=== PATIENT | female | born 1975 | race Caucasian/White ===

== ENCOUNTER 2016-08-24 22:14 | Emergency (ER) | payer BC ==
[2016-08-24] MEDS ORDERED: Sodium Chloride 0.9% 1,000 ML IV ONE (22:41)
[2016-08-24] MEDS ORDERED: Sodium Chloride 0.9% 2.5 ML Syringe FLUSH PRN (22:41)
[2016-08-24] MEDS ORDERED: Ketorolac 30 MG/ML SDV IVPUSH ONE (22:41)
[2016-08-24] MEDS ORDERED: HYDROmorphone 2 MG/ML Syringe IVPUSH ONE (22:41)
[2016-08-24] MEDS ORDERED: Ondansetron 4 MG/2 ML SDV IVPUSH ONE (22:41)
--- NOTE | 2016-08-24 22:43 | EDM.PDOC ---
ED HPI GENERAL MEDICAL PROBLEM - General Chief Complaint: Flank Pain Stated Complaint: BACK PAIN Time Seen by Provider: 08/24/16 22:34 - History of Present Illness INITIAL COMMENTS - FREE TEXT/NARRATIVE: HISTORY AND PHYSICAL: History of present illness: The patient is a 40-year-old female with a history of kidney stones many years ago, ovarian cysts cholecystectomy depression and chronic lumbar back pain was been seen in the past by our pain management physician for mild degenerative disc bulging at L4-L5 (per MRI done 09/08/2015 and reviewed by me) and currently takes pain medications for her chronic back pain; patient follows at [facility] for her regular medical problems and states that she stopped her antidepressant medication and is currently only taking medications for her back. Patient presents today with complaints of dysuria and hematuria that started yesterday and right sided back pain/flank pain that radiates to her right lower abdomen at about 3:00 today. She says that she had some dull pain starting yesterday with a urinary complaints but he does seem to have grown and intensified through today until tonight. Patient has had nausea and one episode of vomiting earlier today and currently feels some nausea. She has no neurosensory changes in her legs and no bowel or bladder disturbances other than as stated above. She has been having normal bowel movements and has no left -sided pain. Patient denies any chest pain or shortness of breath and has had no stated fevers or chills. The patient states that this current pain that she is experiencing is not like her to be full lumbar pain and she cannot recall what she felt like prior kidney stone. Patient had no recent falls or injury to her back or flank. Review of systems: As per history of present illness and below otherwise all systems reviewed and negative. Past medical history: As per history of present illness and as reviewed below otherwise noncontributory. Surgical history: As per history of present illness and as reviewed below otherwise noncontributory. Social history: No reported history of drug or alcohol abuse. Family history: As per history of present illness and as reviewed below otherwise noncontributory. Physical exam: General: Well-developed mildly overweight female who is nontoxic but looks uncomfortable in the room and vital signs have been noted by me HEENT: Atraumatic, normocephalic, pupils reactive, negative for conjunctival pallor or scleral icterus, mucous membranes tacky, throat clear, neck supple, nontender, trachea midline. Lungs: Clear to auscultation, breath sounds equal bilaterally, chest nontender. Heart: S1S2, regular, negative for clicks, rubs, or JVD. Abdomen: Soft, nondistended, hypoactive bowel sounds. There is mild tenderness on palpation of the right mid and right lower abdomen without rebound or guarding. I cannot completely reproduce the pain. Negative for masses or hepatosplenomegaly. Negative for costovertebral tenderness. Pelvis: Stable nontender. Genitourinary: Deferred. Rectal: Deferred. Extremities: Atraumatic, negative for cords or calf pain. Neurovascular unremarkable. Neuro: Awake, alert, oriented. Cranial nerves II through XII unremarkable. Cerebellum unremarkable. Motor and sensory unremarkable throughout. Exam nonfocal. There is no drift or noted weakness in the extremities, patient ambulated back to the ED without assistance. Dorsi and plantar flexion is intact bilaterally 5/5 inclusive of the great toe. Back: There is some mild tenderness in the paralumbar spinal area on the right- hand side but there are no midline step-offs tenderness or defects of the lumbar spine. Diagnostics: CBC CMP UA urine culture urine test CT scan of the abdomen and pelvis Therapeutics: IV fluids Zofran Dilaudid Toradol Rocephin Patient is feeling much improved and all testing results have been discussed with the patient and family at bedside. I will prescribe medications for home and advised hydration and need for followup and reasons to return to the ED. Patient is aware of the incidental left ovarian cyst any for followup of that in 4-6 weeks. Impression: Right pyelonephritis, incidental left ovarian cyst Definitive disposition and diagnosis as appropriate pending reevaluation and review of above. Right Flank Pain Score (Numeric/FACES): 7 - Related Data Allergies Allergy/AdvReac Type Severity Reaction Status Date / Time clarithromycin Allergy Cannot Verified 08/24/16 22:22 Remember escitalopram oxalate Allergy Rash Verified 08/24/16 22:22 [From Lexapro] latex Allergy Itching Verified 08/24/16 22:22 sumatriptan Allergy Cannot Verified 08/24/16 22:22 Remember Thiazides Allergy Cannot Verified 08/24/16 22:22 Remember tiagabine HCl [From Gabitril] Allergy Delusions Verified 08/24/16 22:22 Home Meds: Home Meds Sertraline [Zoloft] 50 mg PO BEDTIME 07/25/13 [History] Zolpidem [Ambien] 10 mg PO BEDTIME 07/25/13 [History] Venlafaxine [Effexor XR] 75 mg PO BEDTIME 07/29/13 [History] Past Medical History HEENT History: Reports: None Cardiovascular History: Reports: None Genitourinary History: Reports: Renal calculus Other OB/BYN History: cyst on the ovary and breast Musculoskeletal History: Reports: Back pain, chronic Psychiatric History: Reports: None Dermatologic History: Reports: None - Past Surgical History HEENT Surgical History: Reports: None GI Surgical History: Reports: Cholecystectomy Social & Family History - Tobacco Use Smoking Status *Q: Never Smoker Years of Tobacco use: 8 Used Tobacco, but Quit: Yes Month Tobacco Last Used: 03/29 Second Hand Smoke Exposure: No - Alcohol Use Days Per Week of Alcohol Use: 0 Number of Drinks Per Day: 0 Total Drinks Per Week: 0 - Recreational Drug Use Recreational Drug Use: No Drug Use in Last 12 Months: No ED ROS GENERAL - Review of Systems Review Of Systems: ROS reveals no pertinent complaints other than HPI. ED EXAM, GENERAL - Physical Exam Exam: See Below (See dictation) Course - Vital Signs Last Recorded V/S: Last Vital Signs Temp 36.9 C 08/24/16 22:22 Pulse 96 08/24/16 22:22 Resp 16 08/24/16 22:22 BP 140/90 08/24/16 22:22 Pulse Ox 98 08/24/16 22:22 - Orders/Labs/Meds Orders: Active Orders 24 hr Category Date Time Status Abdomen Pelvis wo Cont [CT] Stat Exams 08/24/16 22:41 Taken CULTURE URINE [RM] Stat Lab 08/24/16 22:25 Received Sodium Chloride 0.9% [Saline Flush] Med 08/24/16 22:41 Active 10 ml FLUSH ASDIRECTED PRN Sodium Chloride 0.9% [Saline Flush] Med 08/24/16 22:41 Active 2.5 ml FLUSH ASDIRECTED PRN Saline Lock Insert [OM.PC] Stat Oth 08/24/16 22:40 Ordered Medication Orders Sodium Chloride (Saline Flush) 10 ml FLUSH ASDIRECTED PRN PRN Reason: Keep Vein Open Last Admin: 08/24/16 23:03 Dose: 10 ml Admin: 08/24/16 23:02 Dose: 10 ml Admin: 08/24/16 22:59 Dose: 10 ml Sodium Chloride (Saline Flush) 2.5 ml FLUSH ASDIRECTED PRN PRN Reason: Keep Vein Open Last Admin: 08/24/16 22:59 Dose: 2.5 ml Labs: Laboratory Tests 08/24/16 08/24/16 08/24/16 Range/Units 22:25 22:25 22:55 WBC 11.49 H (4.0-11.0) K/uL RBC 4.69 (4.30-5.90) M/uL Hgb 13.8 (12.0-16.0) g/dL Hct 40.9 (36.0-46.0) % MCV 87.2 (80.0-98.0) fL MCH 29.4 (27.0-32.0) pg MCHC 33.7 (31.0-37.0) g/dL RDW Std Deviation 42.1 (28.0-62.0) fl RDW Coeff of Nancy 13 (11.0-15.0) % Plt Count 245 (150-400) K/uL MPV 10.30 (7.40-12.00) fL Neut % (Auto) 58.9 (48.0-80.0) % Lymph % (Auto) 31.7 (16.0-40.0) % [place] % (Auto) 7.6 (0.0-15.0) % Eos % (Auto) 1.6 (0.0-7.0) % Baso % (Auto) 0.2 (0.0-1.5) % Neut # (Auto) 6.8 H (1.4-5.7) K/uL Lymph # (Auto) 3.6 H (0.6-2.4) K/uL [place] # (Auto) 0.9 H (0.0-0.8) K/uL Eos # (Auto) 0.2 (0.0-0.7) K/uL Baso # (Auto) 0.0 (0.0-0.1) K/uL Nucleated RBC % 0.0 /100WBC Nucleated RBCs # 0 K/uL Sodium (136-146) mmol/L Potassium (3.5-5.1) mmol/L Chloride (98-110) mmol/L Carbon Dioxide (21-31) mmol/L BUN (6.0-23.0) mg/dL Creatinine (0.6-1.5) mg/dL Est Cr Clr Drug Dosing mL/min Estimated GFR (MDRD) ml/min Glucose (60-110) mg/dL Calcium (8.8-10.8) mg/dL Total Bilirubin (0.1-1.5) mg/dL AST (5-40) IU/L ALT (8-54) IU/L Alkaline Phosphatase (40-150) Total Protein (6.0-8.0) g/dL Albumin (3.5-5.0) g/dL Globulin (2.0-3.5) g/dL Albumin/Globulin Ratio (1.3-2.8) Urine Color YELLOW Urine Appearance SLT CLOUDY Urine pH 5.5 (5.0-8.0) Ur Specific [place] 1.015 (1.001-1.035) Urine Protein 30 (NEGATIVE) mg/dL Urine Glucose (UA) NEGATIVE (NEGATIVE) mg/dL Urine Ketones NEGATIVE (NEGATIVE) mg/dL Urine Occult Blood LARGE H (NEGATIVE) Urine Nitrite POSITIVE H (NEGATIVE) Urine Bilirubin NEGATIVE (NEGATIVE) Urine Urobilinogen 0.2 (<2.0) EU/dL Ur Leukocyte Esterase LARGE (NEGATIVE) Urine RBC 3-5 (0-2/HPF) Urine WBC 50-75 (0-5/HPF) Ur Epithelial Cells FEW (NONE-FEW) Urine Bacteria FEW (NEGATIVE) Urine HCG, Qual NEGATIVE (NEGATIVE) 08/24/16 Range/Units 22:55 WBC (4.0-11.0) K/uL RBC (4.30-5.90) M/uL Hgb (12.0-16.0) g/dL Hct (36.0-46.0) % MCV (80.0-98.0) fL MCH (27.0-32.0) pg MCHC (31.0-37.0) g/dL RDW Std Deviation (28.0-62.0) fl RDW Coeff of Nancy (11.0-15.0) % Plt Count (150-400) K/uL MPV (7.40-12.00) fL Neut % (Auto) (48.0-80.0) % Lymph % (Auto) (16.0-40.0) % [place] % (Auto) (0.0-15.0) % Eos % (Auto) (0.0-7.0) % Baso % (Auto) (0.0-1.5) % Neut # (Auto) (1.4-5.7) K/uL Lymph # (Auto) (0.6-2.4) K/uL [place] # (Auto) (0.0-0.8) K/uL Eos # (Auto) (0.0-0.7) K/uL Baso # (Auto) (0.0-0.1) K/uL Nucleated RBC % /100WBC Nucleated RBCs # K/uL Sodium 139 (136-146) mmol/L Potassium 3.5 (3.5-5.1) mmol/L Chloride 106 (98-110) mmol/L Carbon Dioxide 26 (21-31) mmol/L BUN 10 (6.0-23.0) mg/dL Creatinine 0.8 (0.6-1.5) mg/dL Est Cr Clr Drug Dosing 89.08 mL/min Estimated GFR (MDRD) > 60.0 ml/min Glucose 106 (60-110) mg/dL Calcium 9.3 (8.8-10.8) mg/dL Total Bilirubin 0.5 (0.1-1.5) mg/dL AST 13 (5-40) IU/L ALT 14 (8-54) IU/L Alkaline Phosphatase 60 (40-150) Total Protein 6.5 (6.0-8.0) g/dL Albumin 4.0 (3.5-5.0) g/dL Globulin 2.5 (2.0-3.5) g/dL Albumin/Globulin Ratio 1.6 (1.3-2.8) Urine Color Urine Appearance Urine pH (5.0-8.0) Ur Specific [place] (1.001-1.035) Urine Protein (NEGATIVE) mg/dL Urine Glucose (UA) (NEGATIVE) mg/dL Urine Ketones (NEGATIVE) mg/dL Urine Occult Blood (NEGATIVE) Urine Nitrite (NEGATIVE) Urine Bilirubin (NEGATIVE) Urine Urobilinogen (<2.0) EU/dL Ur Leukocyte Esterase (NEGATIVE) Urine RBC (0-2/HPF) Urine WBC (0-5/HPF) Ur Epithelial Cells (NONE-FEW) Urine Bacteria (NEGATIVE) Urine HCG, Qual (NEGATIVE) Meds: Medications Generic Name Dose Route Start Last Admin Trade Name Freq PRN Reason Stop Dose Admin Sodium Chloride 10 ml 08/24/16 22:41 08/24/16 23:03 Saline Flush FLUSH 10 ml ASDIRECTED PRN Administration Keep Vein Open Sodium Chloride 2.5 ml 08/24/16 22:41 08/24/16 22:59 Saline Flush FLUSH 2.5 ml ASDIRECTED PRN Administration Keep Vein Open Discontinued Medications Generic Name Dose Route Start Last Admin Trade Name Freq PRN Reason Stop Dose Admin Hydromorphone HCl 1 mg 08/24/16 22:41 08/24/16 23:02 Dilaudid IVPUSH 08/24/16 22:42 1 mg ONETIME ONE Administration Sodium Chloride 1,000 mls @ 999 mls/hr 08/24/16 22:41 08/24/16 22:58 Normal Saline IV 08/24/16 23:41 999 mls/hr STAT ONE Administration Ceftriaxone Sodium/Dextrose 1 50 mls @ 100 mls/hr 08/24/16 22:52 08/24/16 23: 08 gm/ Premix IV 08/24/16 23:21 100 mls/hr ONETIME ONE Administration Ketorolac Tromethamine 30 mg 08/24/16 22:41 08/24/16 23:00 Toradol IVPUSH 08/24/16 22:42 30 mg ONETIME ONE Administration Ondansetron HCl 4 mg 08/24/16 22:41 08/24/16 22:59 Zofran IVPUSH 08/24/16 22:42 4 mg ONETIME ONE Administration Departure - Departure Time of Disposition: 00:58 Disposition: Home, Self-Care 01 Condition: good Clinical Impression: Pyelonephritis - Discharge Information Forms: ED Department Discharge Additional Instructions: The following information is given to patients seen in the emergency department who are being discharged to home. This information is to outline your options for follow-up care. We provide all patients seen in our emergency department with a follow-up referral. The need for follow-up, as well as the timing and circumstances, are variable depending upon the specifics of your emergency department visit. If you don't have a primary care physician on staff, we will provide you with a referral. We always advise you to contact your personal physician following an emergency department visit to inform them of the circumstance of the visit and for follow-up with them and/or the need for any referrals to a consulting specialist. The emergency department will also refer you to a specialist when appropriate. This referral assures that you have the opportunity for followup care with a specialist. All of these measure are taken in an effort to provide you with optimal care, which includes your followup. Under all circumstances we always encourage you to contact your private physician who remains a resource for coordinating your care. When calling for followup care, please make the office aware that this follow-up is from your recent emergency room visit. If for any reason you are refused follow-up, please contact the [facility] emergency department at and ask to speak to the emergency department charge nurse. [address] [place] [address] [facility] Primary care- Internal Medicine and Family [address] [id number] Please contact and followup your provider at [facility] or one of our providers in the next few days. You will need a followup ultrasound of your left ovary to evaluate the incidental cyst in 4-6 weeks. Please take the antibiotic prescribed until they are finished and use [id number] Tylenol/ ibuprofen for pain as well as medications prescribed to you today. Return to ER as needed and as discussed - My Orders Last 24 Hours: My Active Orders 08/24/16 22:25 CULTURE URINE [RM] Stat 08/24/16 22:40 Saline Lock Insert [OM.PC] Stat 08/24/16 22:41 Abdomen Pelvis wo Cont [CT] Stat Sodium Chloride 0.9% [Saline Flush] 10 ml FLUSH ASDIRECTED PRN Sodium Chloride 0.9% [Saline Flush] 2.5 ml FLUSH ASDIRECTED PRN - Assessment/Plan Last 24 Hours: My Active Orders 08/24/16 22:25 CULTURE URINE [RM] Stat 08/24/16 22:40 Saline Lock Insert [OM.PC] Stat 08/24/16 22:41 Abdomen Pelvis wo Cont [CT] Stat Sodium Chloride 0.9% [Saline Flush] 10 ml FLUSH ASDIRECTED PRN Sodium Chloride 0.9% [Saline Flush] 2.5 ml FLUSH ASDIRECTED PRN
[2016-08-24] MEDS ORDERED: cefTRIAXone 1 GM in Premix Bag 1 BAG IV ONE (22:52)
[2016-08-24] MEDS: Sodium Chloride 0.9% 10 ML Syringe FLUSH PRN ×3 (22:59→23:03)
[2016-08-24 23:33] LABS: CHLORIDE,CL 106 mmol/L (98-110); SODIUM,NA 139 mmol/L (136-146)
[2016-08-25 01:21] VITALS: BP 121/80
--- NOTE | 2016-08-25 19:57 | CT ---
EXAM DATE: 08/24/16 PATIENT'S AGE: 40 Patient: LUISITO CHILDERS Facility: [place], [place] Site . Site : 1975 Study: CT Abdomen/Pelvis WO CONT [id number]/12/2017 12:13:18 AM Ordering Physician: Jeniffer Cortez Final Report: INDICATION: Pain. , blood in urine. History of kidney stones. TECHNIQUE: CT abdomen and pelvis without i.v. contrast. Coronal and sagittal reformats were obtained. COMPARISON: CT study dated 04/15/2007. FINDINGS: Marketing Sales Consultant CT images: Nonobstructive bowel gas pattern. Cholecystectomy surgical clips in the right upper abdominal quadrant. Lower chest: Imaged lung bases are clear. No free air. Imaged inferior heart normal in size. No pleural or pericardial effusion. Lower anterior chest wall unremarkable. Liver: Noncontrast evaluation of the liver unremarkable. Spleen: Unremarkable. Pancreas: Unremarkable. Gallbladder and bile ducts: Gallbladder is surgically absent. Bile ducts normal in caliber. Kidneys: No radiopaque renal or ureteral calculi identified. There is asymmetric fullness to the right ureter with adjacent fat stranding. Bladder incompletely distended with no evidence of bladder wall or intraluminal calcification. Adrenal glands: Unremarkable. GI tract: Unremarkable. The appendix is normal in appearance and size. Vascular: Limited evaluation of the mesenteric vessels without IV contrast. Abdominal aorta normal in caliber. Lymph nodes: Unremarkable. Miscellaneous: Unremarkable. No pneumoperitoneum is seen. No significant ascites is noted. Small umbilical hernia defect containing fat. Pelvic Organs: The uterus and adnexa are unremarkable. Left ovarian cyst, measuring 3.2 centimeters. Bones: Unremarkable for age. IMPRESSION: 1. No renal or ureteral calculi. Asymmetric fullness to the right ureter with adjacent fat stranding. Findings may represent recently passed right ureteral calculus versus upper tract urinary infection. 2. Left ovarian cyst, measuring 3.2 centimeters. 3. Normal appendix. Dictated by Abhijit Dempsey MD @ 08/25/2016 12:48:21 AM Dictated by: Abhijit Dempsey MD @ 08/25/2016 00:48:33 (Electronic Signature) Report Signed by Proxy. [facility]
== END 2016-08-25 01:21 | disposition home or self-care (01) ==
LOC: MW.ED 22:14
DX: N12 Tubulo-interstitial nephritis, not specified as acute or chronic (principal); N83.202 Unspecified ovarian cyst, left side; F32.9 Major depressive disorder, single episode, unspecified; M54.5 Low back pain; G89.29 Other chronic pain; Z88.8 Allergy status to other drugs, medicaments and biological substances; Z79.899 Other long term (current) drug therapy; Z87.442 Personal history of urinary calculi
CPT/HCPCS: 74176; 80053; 81001; 81025; 85025; 87086; 87088; 87186; 96361; 96365; 96375; 99284; J0696; J1170; J1885; J2405; J7040

== ENCOUNTER → 2016-09-05 | Outpatient (CLI) | payer BC ==
[2016-09-12 15:05] LABS: HPV 16 Not Detected (NOTDET); HPV 18 Not Detected (NOTDET)
== END ==
LOC: MW.CHOBGYN 10:27
PROVIDERS: ATTEND Nurse Practitioner Women's Health
DX: N92.6 Irregular menstruation, unspecified (principal); N83.202 Unspecified ovarian cyst, left side
CPT/HCPCS: 36415; 84443; 84703; 85025; 86304; 87624; G0145

== ENCOUNTER 2016-09-28 07:49 | Day surgery (SDC) | payer BC ==
[2016-09-27 09:55] LABS: CHLORIDE,CL 109 mmol/L (98-110); SODIUM,NA 140 mmol/L (136-146)
[~2016-09-28 07:49] MED LIST: Dexamethasone 4 MG/ML 5 ML MDV ONE; Fluorescein 5 ML Vial ONE; HYDROmorphone 2 MG/ML Syringe ONE; Lidocaine 2% 5 ML SDV ONE; Midazolam 1 MG/ML 2 ML SDV ONE; Octyl 2-Cyanoacrylate 1 Tube ONE; Ondansetron 4 MG/2 ML SDV ONE; Propofol 200 MG/20 ML SDV ONE; Rocuronium 10 MG/ML 10 ML Syringe ONE; Sodium Chloride 0.9% 10 ML Syringe FLUSH PRN; Sodium Chloride 0.9% 2.5 ML Syringe FLUSH PRN; ceFAZolin 2 GM in Premix Bag 1 BAG IV ONE; fentaNYL 250 MCG/5 ML SDV ONE
[2016-09-28] MEDS: Lactated Ringers 1,000 ML IV SCH ×2 (08:23→17:35)
[2016-09-28] MEDS ORDERED: Scopolamine 1.5 MG Transdermal Patch TRDERM PRN (09:19)
--- NOTE | 2016-09-28 09:19 | PCM.PREANE ---
Preanesthetic Assessment - Anesthesia/Transfusion/Family Hx Anesthesia History: Prior Anesthesia Reaction (pneumonia after cholecystectomy per patient) Other Type of Anesthesia Reaction Comment: states "gets nauseated before anesthesia is even given" Family History of Anesthesia Reaction: No Transfusion History: No Prior Transfusion(s) Intubation History: Unknown - Review of Systems General: No Symptoms Pulmonary: No Symptoms Cardiovascular: No Symptoms Gastrointestinal: No symptoms Neurological: No Symptoms Other: Reports: None - Physical Assessment NPO Status Date: 09/27/16 NPO Status Time: 21:30 O2 Sat by Pulse Oximetry: 96 Respiratory Rate: 16 Vital Signs: Last Vital Signs Temp 37.0 C 09/28/16 08:21 Pulse 75 09/28/16 08:21 Resp 16 09/28/16 08:21 BP 126/80 09/28/16 08:21 Pulse Ox 96 09/28/16 08:21 Height: 1.7 m Weight: 106 kg ASA Class: 2 Mental Status: Alert & Oriented x3 Airway Class: Mallampati = 2 Dentition: Reports: Normal Dentition Thyro-Mental Finger Breadths: 2 Mouth Opening Finger Breadths: 2 ROM/Head Extension: Full Lungs: Clear to auscultation, Normal respiratory effort Cardiovascular: Regular Rate, Regular Rhythm - Lab Values: Laboratory Last Values WBC 7.01 K/uL (4.0-11.0) 09/27/16 09:21 RBC 5.12 M/uL (4.30-5.90) 09/27/16 09:21 Hgb 15.0 g/dL (12.0-16.0) 09/27/16 09:21 Hct 44.2 % (36.0-46.0) 09/27/16 09:21 MCV 86.3 fL (80.0-98.0) 09/27/16 09:21 MCH 29.3 pg (27.0-32.0) 09/27/16 09:21 MCHC 33.9 g/dL (31.0-37.0) 09/27/16 09:21 RDW Std Deviation 41.3 fl (28.0-62.0) 09/27/16 09:21 RDW Coeff of Nancy 13 % (11.0-15.0) 09/27/16 09:21 Plt Count 250 K/uL (150-400) 09/27/16 09:21 MPV 10.30 fL (7.40-12.00) 09/27/16 09:21 Nucleated RBC % 0.0 /100WBC 09/27/16 09:21 Nucleated RBCs # 0 K/uL 09/27/16 09:21 Sodium 140 mmol/L (136-146) 09/27/16 09:21 Potassium 4.4 mmol/L (3.5-5.1) 09/27/16 09:21 Chloride 109 mmol/L (98-110) 09/27/16 09:21 Carbon Dioxide 21 mmol/L (21-31) 09/27/16 09:21 BUN 13 mg/dL (6.0-23.0) 09/27/16 09:21 Creatinine 0.8 mg/dL (0.6-1.5) 09/27/16 09:21 Est Cr Clr Drug Dosing 89.08 mL/min 09/27/16 09:21 Estimated GFR (MDRD) > 60.0 ml/min 09/27/16 09:21 Glucose 97 mg/dL (60-110) 09/27/16 09:21 Calcium 8.8 mg/dL (8.8-10.8) 09/27/16 09:21 HCG, Qual NEGATIVE (NEG) 09/27/16 09:21 Blood Type O POSITIVE 09/27/16 09:21 Antibody Screen NEGATIVE 09/27/16 09:21 - Allergies Allergies/Adverse Reactions: Allergies Allergy/AdvReac Type Severity Reaction Status Date / Time clarithromycin Allergy Cannot Verified 08/24/16 22:22 Remember escitalopram oxalate Allergy Rash Verified 08/24/16 22:22 [From Lexapro] latex Allergy Itching Verified 08/24/16 22:22 sumatriptan Allergy Cannot Verified 08/24/16 22:22 Remember Thiazides Allergy Cannot Verified 08/24/16 22:22 Remember tiagabine HCl [From Gabitril] Allergy Delusions Verified 08/24/16 22:22 - Blood Blood Available: No - Anesthesia Plan Pre-Op Medication Ordered: None - Acknowledgements Anesthesia Type Planned: General Anesthesia Pt an Appropriate Candidate for the Planned Anesthesia: Yes Alternatives and Risks of Anesthesia Discussed w Pt/Guardian: Yes Pt/Guardian Understands and Agrees with Anesthesia Plan: Yes PreAnesthesia Questionnaire HEENT History: Reports: Other (See Below) Other HEENT History: wears glasses Cardiovascular History: Reports: None Respiratory History: Reports: Other (See Below) Other Respiratory History: surgical pneumonia after her gallbladder surgery Gastrointestinal History: Reports: GERD, Other (See Below) (h/o gastric ulcer) Genitourinary History: Reports: Renal Calculus SCREEN MAKER History: Reports: Endometriosis, , Other (See Below) Other OB/BYN History: cyst on the ovary and breast Musculoskeletal History: Reports: Back Pain, Chronic, Other (See Below) (h/o ankle instability and effusion) Neurological History: Reports: Migraines, Neuropathy, Peripheral (idiopathic) Psychiatric History: Reports: Anxiety, Depression, PTSD Endocrine/Metabolic History: Reports: Obesity/BMI 30+ Hematologic History: Reports: Anemia Dermatologic History: Reports: None - Past Surgical History Head Surgeries/Procedures: Reports: None HEENT Surgical History: Reports: None GI Surgical History: Reports: Cholecystectomy Female Surgical History: Reports: Breast Biopsy Other Female Surgeries/Procedures: breast bx, laparoscopy with cystectomy - SUBSTANCE USE Smoking Status *Q: Former Smoker Second Hand Smoke Exposure: No Days Per Week of Alcohol Use: 0 Number of Drinks Per Day: 0 Total Drinks Per Week: 0 Recreational Drug Use History: No - HOME MEDS Home Medications: Home Meds Acetaminophen/HYDROcodone [[place]a 325-5 MG] 1 tab PO ASDIRECTED PRN 08/25/16 [ History] Zolpidem [Ambien] 5 mg PO BEDTIME 08/25/16 [History] - CURRENT (IN HOUSE) MEDS Current Meds: Current Medications Lactated Ringer's (Ringers, Lactated) 1,000 mls @ 125 mls/hr IV ASDIRECTED RAYMOND Last Admin: 09/28/16 08:23 Dose: 125 mls/hr Sodium Chloride (Saline Flush) 10 ml FLUSH ASDIRECTED PRN PRN Reason: Keep Vein Open Sodium Chloride (Saline Flush) 2.5 ml FLUSH ASDIRECTED PRN PRN Reason: Keep Vein Open Discontinued Medications Dexamethasone (Dexamethasone) Confirm Administered Dose 20 mg .ROUTE .STK-MED ONE Stop: 09/28/16 07:25 Fentanyl (Sublimaze) Confirm Administered Dose 250 mcg .ROUTE .STK-MED ONE Stop: 09/28/16 07:26 Fluorescein Sodium (Ak-Fluor) Confirm Administered Dose 5 ml .ROUTE .STK-MED ONE Stop: 09/28/16 07:16 Hydromorphone HCl (Dilaudid) Confirm Administered Dose 2 mg .ROUTE .STK-MED ONE Stop: 09/28/16 07:26 Cefazolin Sodium/Dextrose 2 gm (/ Premix) 50 mls @ 100 mls/hr IV ONETIME ONE Stop: 09/27/16 09:22 Lidocaine (Xylocaine-Mpf 2%) Confirm Administered Dose 5 ml .ROUTE .STK-MED ONE Stop: 09/28/16 07:26 Midazolam HCl (Versed 1 Mg/Ml) Confirm Administered Dose 2 mg .ROUTE .STK-MED ONE Stop: 09/28/16 07:25 Octyl Cyanoacrylate (Dermabond Advance) Confirm Administered Dose 1 applic .ROUTE .STK-MED ONE Stop: 09/28/16 07:16 Ondansetron HCl (Zofran) Confirm Administered Dose 4 mg .ROUTE .STK-MED ONE Stop: 09/28/16 07:25 Propofol (Diprivan 20 Ml) Confirm Administered Dose 200 mg .ROUTE .STK-MED ONE Stop: 09/28/16 07:25 Rocuronium [place] (Zemuron) Confirm Administered Dose 100 mg .ROUTE .STK-MED ONE Stop: 09/28/16 07:25
[2016-09-28] MEDS ORDERED: Scopolamine 1.5 MG Transdermal Patch ONE (09:24)
[2016-09-28] MEDS ORDERED: Succinylcholine/Normal Saline 200 MG/10 ML Syringe ONE (09:39)
[2016-09-28] MEDS ORDERED: fentaNYL 100 MCG/2 ML SDV IVPUSH PRN (10:03)
[2016-09-28] MEDS ORDERED: Mineral Oil/Petrolatum Ophth Oint 3.5 GM Tube ONE (10:03)
[2016-09-28] MEDS ORDERED: Furosemide 40 MG/4 ML VIAL ONE (10:03)
[2016-09-28] MEDS ORDERED: Promethazine 12.5 MG Supp RECTAL PRN (10:03)
[2016-09-28] MEDS ORDERED: fentaNYL 100 MCG/2 ML SDV ONE (10:10)
[2016-09-28] MEDS ORDERED: Neostigmine Methylsulfate 1 MG/ML 5 ML Syringe ONE (10:42)
[2016-09-28] MEDS ORDERED: HYDROmorphone 2 MG/ML Syringe ONE (10:55)
[2016-09-28] MEDS ORDERED: Promethazine 25 MG/ML SDV IM PRN (10:56)
[2016-09-28] MEDS ORDERED: Acetaminophen/oxyCODONE 325-5 MG Tab PO PRN (10:56)
[2016-09-28] MEDS ORDERED: Morphine 4 MG/ML Syringe IVPUSH PRN (10:56)
[2016-09-28] MEDS ORDERED: Ketorolac 30 MG/ML SDV IVPUSH ONE (10:56)
[2016-09-28] MEDS ORDERED: Ketorolac 30 MG/ML SDV IVPUSH PRN (10:56)
--- NOTE | 2016-09-28 11:00 | PCM.OPNOTE ---
- General Post-Op/Procedure Note Date of Surgery/Procedure: 09/28/16 Operative Procedure(s): TLH, BS and cuysto Pre Op Diagnosis: Pelvic pain , menonetrorraghia Post-Op Diagnosis: Same Anesthesia Technique: General ET tube Primary Surgeon: Ronal Simmons Cooling Tower Technician: Kady Barreto EBL in mLs: 150 Complications: None Condition: Good
--- NOTE | 2016-09-28 12:03 | PCM.POSTAN ---
POST ANESTHESIA ASSESSMENT - MENTAL STATUS Mental Status: alert, oriented - RESPIRATORY Respiratory Status: respiratory rate WNL, airway patent, O2 saturation stable - CARDIOVASCULAR CV Status: pulse rate WNL, blood pressure stable - GASTROINTESTINAL GI Status: no symptoms - PAIN Pain Score: 3 - POST OP HYDRATION Hydration Status: adequate & stable - OBSERVATIONS Free Text/Narrative:: no anesthesia problems
[2016-09-28] MEDS: Ondansetron 4 MG/2 ML SDV IVPUSH PRN ×2 (13:12→20:34)
--- NOTE | 2016-09-28 14:47 | OR ---
SURGEON: Ronal Simmons MD DATE OF PROCEDURE: 09/28/2016 PREOPERATIVE DIAGNOSES: Menometrorrhagia and pelvic pain. POSTOPERATIVE DIAGNOSES: Menometrorrhagia and pelvic pain. OPERATION PERFORMED: Multiple puncture diagnostic laparoscopy, total laparoscopic hysterectomy, laparoscopic bilateral salpingectomy preserving both ovaries, and cystoscopy. RESIZER OPERATOR: ELIAS Barraza ANESTHESIA: General endotracheal intubation, Radha Hassan and Dr. Trinh. ESTIMATED BLOOD LOSS: 150 mL. COMPLICATIONS: None. FINDINGS: Uterus about 8 weeks' size. Both ovaries essentially are normal. INDICATION FOR SURGERY: Refer to the admit note. PROCEDURE IN DETAIL: The patient was brought to the OR, properly identified, and after adequate level of general anesthesia, the patient was placed in lithotomy position with an access to the abdomen and the vagina. The patient was prepped and draped in sterile fashion as usual. Sung catheter was placed in the bladder for drainage and Cooper[employer] manipulator and colpotomizer is placed in place in the uterus. Then the operation shifted abdominally. Stab wound done beneath the umbilicus. The Veress needle was placed in the peritoneal cavity and that cavity insufflated with 6 L carbon dioxide. The skin incision was enlarged to accommodate the trocar. The laparoscope through trocar sheath inspected and then utilizing the Visiport technique, the peritoneal cavity was entered. Once we entered the peritoneal cavity, the patient was placed in a steep Trendelenburg and the 10-12 trocar placed in the left iliac fossa and the 5 mm trocar in the right iliac fossa. The operation was started by identifying the landmark of the pelvis. Both ovaries were normal and it was felt that we needed to preserve them, so the procedure was started by taking the superior pedicle. The tube is included with a specimen, but the ovaries preserved on both sides and the superior pedicle was coagulated and transected using the MANN-7 Harmonic scapula, and then the round ligament is coagulated from both sides and then the anterior leaf of the broad ligament dissected downward medially pushing the bladder completely away from the operative field until the manipulator rings could be felt easily through the vagina. Then the skeletonization of the uterine vessel was done and at the level of the internal ring of the manipulator, these uterine vessels coagulated and transected on both sides, and then the vagina entered with an MANN-7 Harmonic scapula at the tip using the rings as the guideline in a circular manner and then the uterus was detached from its attachment to the vagina. Then thorough irrigation of the pelvis shows there is no oozing and no bleeding. We proceeded to close the vaginal cuff laparoscopically using 2-0 PDS interrupted sutures. While closing the vaginal cuff, we asked the Anesthesia people to give the patient fluorescein and after closing the vaginal cuff a thorough irrigation of the pelvis was done. Inspection of all the pedicle was done. There was no oozing and no bleeding and the area evacuated from the peritoneal cavity and the patient was taken off Trendelenburg. A Sung catheter is removed and cystoscopy was performed. The bladder was intact. Both ureteric orifices were seen with a dye coming from both of this and thus the patency of both ureters verified. Satisfied with these findings, the cystoscope was removed, the bladder was emptied, and the multiple laparoscopic incisions and trocars were removed, and then the incision is closed in layers. Instrument and sponge count was correct. The patient tolerated the procedure well and went to recovery room in stable and general condition. GANGA / DAPHNEY /[id number]
[2016-09-28] MEDS: Morphine 2 MG/ML Syringe IVPUSH PRN ×2 (16:14→20:24)
[2016-09-28] MEDS: Acetaminophen/oxyCODONE 325-5 MG Tab PO PRN (23:44)
[2016-09-29] MEDS: Lactated Ringers 1,000 ML IV SCH (01:31)
[2016-09-29] MEDS: Acetaminophen/oxyCODONE 325-5 MG Tab PO PRN ×2 (03:45→08:45)
[2016-09-29 04:49] LABS: CHLORIDE,CL 106 mmol/L (98-110); SODIUM,NA 139 mmol/L (136-146)
[2016-09-29 08:20] VITALS: BP 113/64
--- NOTE | 2016-09-29 09:15 | PCM.SURGPN ---
- General Info Date of Service: 09/29/16 POD#: 1 Functional Status: Reports: pain controlled - Review of Systems General: Reports: No Symptoms HEENT: Reports: no symptoms Pulmonary: Reports: no symptoms Cardiovascular: Reports: No Symptoms Gastrointestinal: Reports: No symptoms Genitourinary: Reports: no symptoms Musculoskeletal: Reports: no symptoms Skin: Reports: no symptoms Neurological: Reports: No Symptoms Psychiatric: Reports: no symptoms - Patient Data Vitals - most recent: Last Vital Signs Temp 37.3 C 09/29/16 08:00 Pulse 74 09/29/16 08:00 Resp 17 09/29/16 08:00 BP 113/64 09/29/16 08:00 Pulse Ox 97 09/29/16 08:00 Weight - most recent: 106 kg I&O - last 24 hours: Intake & Output 09/28/16 09/29/16 09/29/16 22:59 06:59 14:59 Intake Total 0 600 360 Output Total 150 2175 Balance -150 -1575 360 Lab Results last 24 hrs: Laboratory Results - last 24 hr 09/29/16 09/29/16 Range/Units 04:00 04:00 WBC 11.01 H (4.0-11.0) K/uL RBC 4.51 (4.30-5.90) M/uL Hgb 13.1 (12.0-16.0) g/dL Hct 39.1 (36.0-46.0) % MCV 86.7 (80.0-98.0) fL MCH 29.0 (27.0-32.0) pg MCHC 33.5 (31.0-37.0) g/dL RDW Std Deviation 41.6 (28.0-62.0) fl RDW Coeff of Nancy 13 (11.0-15.0) % Plt Count 288 (150-400) K/uL MPV 10.50 (7.40-12.00) fL Neut % (Auto) 79.7 (48.0-80.0) % Lymph % (Auto) 15.0 L (16.0-40.0) % [place] % (Auto) 5.2 (0.0-15.0) % Eos % (Auto) 0.0 (0.0-7.0) % Baso % (Auto) 0.1 (0.0-1.5) % Neut # (Auto) 8.8 H (1.4-5.7) K/uL Lymph # (Auto) 1.7 (0.6-2.4) K/uL [place] # (Auto) 0.6 (0.0-0.8) K/uL Eos # (Auto) 0.0 (0.0-0.7) K/uL Baso # (Auto) 0.0 (0.0-0.1) K/uL Nucleated RBC % 0.0 /100WBC Nucleated RBCs # 0 K/uL Sodium 139 (136-146) mmol/L Potassium 4.1 (3.5-5.1) mmol/L Chloride 106 (98-110) mmol/L Carbon Dioxide 22 (21-31) mmol/L BUN 7 (6.0-23.0) mg/dL Creatinine 0.8 (0.6-1.5) mg/dL Est Cr Clr Drug Dosing 89.08 mL/min Estimated GFR (MDRD) > 60.0 ml/min Glucose 99 (60-110) mg/dL Calcium 8.2 L (8.8-10.8) mg/dL Med Orders - Current: Current Medications Fentanyl (Sublimaze) 50 mcg IVPUSH SEECOMMENT PRN PRN Reason: Pain (moderate 4-6) Lactated Ringer's (Ringers, Lactated) 1,000 mls @ 125 mls/hr IV ASDIRECTED [facility] Last Admin: 09/29/16 01:31 Dose: 125 mls/hr Ketorolac Tromethamine (Toradol) 30 mg IVPUSH Q6H PRN PRN Reason: Pain (severe 7-10) Stop: 10/03/16 10:56 Last Admin: 09/28/16 16:45 Dose: 30 mg Morphine Sulfate (Morphine) 2 mg IVPUSH Q2H PRN PRN Reason: Pain (severe 7-10) Last Admin: 09/28/16 20:24 Dose: 2 mg Morphine Sulfate (Morphine) 4 mg IVPUSH Q2H PRN PRN Reason: Pain (severe 7-10) Ondansetron HCl (Zofran) 4 mg IVPUSH Q6H PRN PRN Reason: Nausea/Vomiting Last Admin: 09/28/16 20:34 Dose: 4 mg Oxycodone/Acetaminophen (Percocet 325-5 Mg) 1 tab PO Q4H PRN PRN Reason: Pain (moderate 4-6) Oxycodone/Acetaminophen (Percocet 325-5 Mg) 2 tab PO Q4H PRN PRN Reason: Pain (moderate 4-6) Last Admin: 09/29/16 08:45 Dose: 2 tab Promethazine HCl (Phenadoz) 12.5 - 25 mg RECTAL ASDIRECTED PRN PRN Reason: Nausea/Vomiting Promethazine HCl (Phenergan) 25 mg IM Q6H PRN PRN Reason: Nausea/Vomiting Last Admin: 09/28/16 16:26 Dose: 25 mg Scopolamine (Transderm-Scop) 1.5 mg TRDERM Q72H PRN PRN Reason: Nausea Last Admin: 09/28/16 09:25 Dose: 1.5 mg Sodium Chloride (Saline Flush) 10 ml FLUSH ASDIRECTED PRN PRN Reason: Keep Vein Open Sodium Chloride (Saline Flush) 2.5 ml FLUSH ASDIRECTED PRN PRN Reason: Keep Vein Open Discontinued Medications Dexamethasone (Dexamethasone) Confirm Administered Dose 20 mg .ROUTE .STK-MED ONE Stop: 09/28/16 07:25 Fentanyl (Sublimaze) Confirm Administered Dose 250 mcg .ROUTE .STK-MED ONE Stop: 09/28/16 07:26 Fentanyl (Sublimaze) Confirm Administered Dose 100 mcg .ROUTE .STK-MED ONE Stop: 09/28/16 10:11 Fluorescein Sodium (Ak-Fluor) Confirm Administered Dose 5 ml .ROUTE .STK-MED ONE Stop: 09/28/16 07:16 Furosemide (Lasix) Confirm Administered Dose 40 mg .ROUTE .STK-MED ONE Stop: 09/28/16 10:04 Glycopyrrolate () Confirm Administered Dose 1 mg .ROUTE .STK-MED ONE Stop: 09/28/16 10:43 Hydromorphone HCl (Dilaudid) Confirm Administered Dose 2 mg .ROUTE .STK-MED ONE Stop: 09/28/16 07:26 Hydromorphone HCl (Dilaudid) Confirm Administered Dose 2 mg .ROUTE .STK-MED ONE Stop: 09/28/16 10:56 Cefazolin Sodium/Dextrose 2 gm (/ Premix) 50 mls @ 100 mls/hr IV ONETIME ONE Stop: 09/27/16 09:22 Last Admin: 09/28/16 15:57 Dose: Not Given Ketorolac Tromethamine (Toradol) 30 mg IVPUSH ONETIME ONE Stop: 09/28/16 10:57 Last Admin: 09/28/16 15:25 Dose: Not Given Lidocaine (Xylocaine-Mpf 2%) Confirm Administered Dose 5 ml .ROUTE .STK-MED ONE Stop: 09/28/16 07:26 Midazolam HCl (Versed 1 Mg/Ml) Confirm Administered Dose 2 mg .ROUTE .STK-MED ONE Stop: 09/28/16 07:25 Mineral Oil/White Petrolatum (Lacri-Lube S.O.P Oint) Confirm Administered Dose 3.5 gm .ROUTE .STK-MED ONE Stop: 09/28/16 10:04 Neostigmine Methylsulfate (Neostigmine) Confirm Administered Dose 5 mg .ROUTE .STK-MED ONE Stop: 09/28/16 10:43 Octyl Cyanoacrylate (Dermabond Advance) Confirm Administered Dose 1 applic .ROUTE .STK-MED ONE Stop: 09/28/16 07:16 Ondansetron HCl (Zofran) Confirm Administered Dose 4 mg .ROUTE .STK-MED ONE Stop: 09/28/16 07:25 Propofol (Diprivan 20 Ml) Confirm Administered Dose 200 mg .ROUTE .STK-MED ONE Stop: 09/28/16 07:25 Rocuronium [place] (Zemuron) Confirm Administered Dose 100 mg .ROUTE .STK-MED ONE Stop: 09/28/16 07:25 Scopolamine (Transderm-Scop) Confirm Administered Dose 1.5 mg .ROUTE .STK-MED ONE Stop: 09/28/16 09:25 Last Admin: 09/28/16 15:25 Dose: Not Given Succinylcholine Chloride (Succinylcholine In Ns Pf) Confirm Administered Dose 200 mg .ROUTE .STK-MED ONE Stop: 09/28/16 09:40 - Exam Wound/Incisions: healing well General: alert, oriented HEENT: Pupils equal Neck: supple Lungs: Clear to auscultation, Normal respiratory effort Cardiovascular: Regular Rate, Regular Rhythm Abdomen: bowel sounds present, soft, no tenderness, no distension Extremities: no edema Skin: warm, dry, intact Neurological: no new focal deficit Psy/Mental Status: alert, normal affect, normal mood - Problem List Review Problem List Initiated/Reviewed/Updated: Yes - My Orders Last 24 Hours: Active Orders 24 hr Category Date Time Status Patient Status [ADT] Routine ADT 09/28/16 10:56 Active Antiembolic Devices [RC] PER UNIT ROUTINE Care 09/28/16 10:56 Active Notify Provider Vital Signs [RC] ASDIRECTED Care 09/28/16 10:56 Active Oxygen Therapy [RC] ASDIRECTED Care 09/28/16 11:57 Active RT Incentive Spirometry [RC] Q2HWA Care 09/28/16 10:56 Active Up With Assistance [RC] PER UNIT ROUTINE Care 09/28/16 10:56 Active Up ad Myrna [RC] PER UNIT ROUTINE Care 09/28/16 10:56 Active Vital Signs [RC] PER UNIT ROUTINE Care 09/28/16 10:56 Active Regular Diet [DIET] Diet 09/28/16 Lunch Active Acetaminophen/oxyCODONE [Percocet 325-5 MG] Med 09/28/16 10:56 Active 1 tab PO Q4H PRN Acetaminophen/oxyCODONE [Percocet 325-5 MG] Med 09/28/16 10:56 Active 2 tab PO Q4H PRN Ketorolac [Toradol] Med 09/28/16 10:56 Active 30 mg IVPUSH Q6H PRN Morphine Med 09/28/16 10:56 Active 2 mg IVPUSH Q2H PRN Morphine Med 09/28/16 10:56 Active 4 mg IVPUSH Q2H PRN Ondansetron [Zofran] Med 09/28/16 10:56 Active 4 mg IVPUSH Q6H PRN Promethazine [Phenadoz] Med 09/28/16 10:03 Active 12.5 - 25 mg RECTAL ASDIRECTED PRN Promethazine [Phenergan] Med 09/28/16 10:56 Active 25 mg IM Q6H PRN Scopolamine [Transderm-Scop] Med 09/28/16 09:19 Active 1.5 mg TRDERM Q72H PRN fentaNYL [Sublimaze] Med 09/28/16 10:03 Active 50 mcg IVPUSH SEECOMMENT PRN Peripheral IV Discontinue [OM.PC] Routine Oth 09/28/16 10:56 Ordered Sequential Compression Device [OM.PC] Per Unit Routine Oth 09/28/16 10:56 Ordered Resuscitation Status Routine Resus Stat 09/28/16 10:56 Ordered Medication Orders Fentanyl (Sublimaze) 50 mcg IVPUSH SEECOMMENT PRN PRN Reason: Pain (moderate 4-6) Lactated Ringer's (Ringers, Lactated) 1,000 mls @ 125 mls/hr IV ASDIRECTED [facility] Last Admin: 09/29/16 01:31 Dose: 125 mls/hr Infusion: 09/29/16 01:31 Dose: 125 mls/hr Admin: 09/28/16 17:35 Dose: 125 mls/hr Infusion: 09/28/16 16:23 Dose: 125 mls/hr Admin: 09/28/16 08:23 Dose: 125 mls/hr Ketorolac Tromethamine (Toradol) 30 mg IVPUSH Q6H PRN PRN Reason: Pain (severe 7-10) Stop: 10/03/16 10:56 Last Admin: 09/28/16 16:45 Dose: 30 mg Morphine Sulfate (Morphine) 2 mg IVPUSH Q2H PRN PRN Reason: Pain (severe 7-10) Last Admin: 09/28/16 20:24 Dose: 2 mg Admin: 09/28/16 16:14 Dose: 2 mg Morphine Sulfate (Morphine) 4 mg IVPUSH Q2H PRN PRN Reason: Pain (severe 7-10) Ondansetron HCl (Zofran) 4 mg IVPUSH Q6H PRN PRN Reason: Nausea/Vomiting Last Admin: 09/28/16 20:34 Dose: 4 mg Admin: 09/28/16 13:12 Dose: 4 mg Oxycodone/Acetaminophen (Percocet 325-5 Mg) 1 tab PO Q4H PRN PRN Reason: Pain (moderate 4-6) Oxycodone/Acetaminophen (Percocet 325-5 Mg) 2 tab PO Q4H PRN PRN Reason: Pain (moderate 4-6) Last Admin: 09/29/16 08:45 Dose: 2 tab Admin: 09/29/16 03:45 Dose: 2 tab Admin: 09/28/16 23:44 Dose: 2 tab Promethazine HCl (Phenadoz) 12.5 - 25 mg RECTAL ASDIRECTED PRN PRN Reason: Nausea/Vomiting Promethazine HCl (Phenergan) 25 mg IM Q6H PRN PRN Reason: Nausea/Vomiting Last Admin: 09/28/16 16:26 Dose: 25 mg Scopolamine (Transderm-Scop) 1.5 mg TRDERM Q72H PRN PRN Reason: Nausea Last Admin: 09/28/16 09:25 Dose: 1.5 mg Sodium Chloride (Saline Flush) 10 ml FLUSH ASDIRECTED PRN PRN Reason: Keep Vein Open Sodium Chloride (Saline Flush) 2.5 ml FLUSH ASDIRECTED PRN PRN Reason: Keep Vein Open - Assessment Assessment (Free Text/Narrative):: Status post total laparoscopic hysterectomy postoperative day #1 the patient is doing well on regular diet no vaginal bleeding afebrile her lab work essentially is normal. - Plan Plan (Free Text/Narrative):: Patient to be sent home today post hysterectomy instruction is given to the patient prescription of Percocet 7.5/325 every 4 hours and when necessary for the pain is given. There is no restriction on her diet the patient is to come to the office in one week the day of her discharge for late postoperative examination
--- NOTE | 2016-09-29 09:16 | PCM.DCSUM1 ---
Discharge Summary - Discharge Data Discharge Date: 09/29/16 Discharge Disposition: Home, Self-Care 01 Condition: Good - Patient Summary/Data Operative Procedure(s) Performed: TLH, BS and cuysto - Patient Instructions Diet: Usual Diet as Tolerated Driving: Do Not Drive Showering/Bathing: May Shower Wound/Incision Care: Keep Operative Site/Wound Site Clean and Dry Notify Provider of: Fever, Increased Pain, Nausea and/or Vomiting - Discharge Plan Home Medications: Home Meds Acetaminophen/HYDROcodone [[place] 325-5 MG] 1 tab PO ASDIRECTED PRN 08/25/16 [ History] Zolpidem [Ambien] 5 mg PO BEDTIME 08/25/16 [History] Referrals: Ronal Simmons MD [Physician] - 10/06/16 1:30 pm - General Info Date of Service: 09/29/16 Functional Status: Reports: pain controlled - Review of Systems General: Reports: No Symptoms HEENT: Reports: no symptoms Pulmonary: Reports: no symptoms Cardiovascular: Reports: No Symptoms Gastrointestinal: Reports: No symptoms Genitourinary: Reports: no symptoms Musculoskeletal: Reports: no symptoms Skin: Reports: no symptoms Neurological: Reports: No Symptoms Psychiatric: Reports: no symptoms - Patient Data Vitals - Most Recent: Last Vital Signs Temp 37.3 C 09/29/16 08:00 Pulse 74 09/29/16 08:00 Resp 17 09/29/16 08:00 BP 113/64 09/29/16 08:00 Pulse Ox 97 09/29/16 08:00 Weight - Most Recent: 106 kg I&O - Last 24 hours: Intake & Output 09/28/16 09/29/16 09/29/16 22:59 06:59 14:59 Intake Total 0 600 360 Output Total 150 2175 Balance -150 -1575 360 Lab Results - Last 24 hrs: Laboratory Results - last 24 hr 09/29/16 09/29/16 Range/Units 04:00 04:00 WBC 11.01 H (4.0-11.0) K/uL RBC 4.51 (4.30-5.90) M/uL Hgb 13.1 (12.0-16.0) g/dL Hct 39.1 (36.0-46.0) % MCV 86.7 (80.0-98.0) fL MCH 29.0 (27.0-32.0) pg MCHC 33.5 (31.0-37.0) g/dL RDW Std Deviation 41.6 (28.0-62.0) fl RDW Coeff of Nancy 13 (11.0-15.0) % Plt Count 288 (150-400) K/uL MPV 10.50 (7.40-12.00) fL Neut % (Auto) 79.7 (48.0-80.0) % Lymph % (Auto) 15.0 L (16.0-40.0) % [place] % (Auto) 5.2 (0.0-15.0) % Eos % (Auto) 0.0 (0.0-7.0) % Baso % (Auto) 0.1 (0.0-1.5) % Neut # (Auto) 8.8 H (1.4-5.7) K/uL Lymph # (Auto) 1.7 (0.6-2.4) K/uL [place] # (Auto) 0.6 (0.0-0.8) K/uL Eos # (Auto) 0.0 (0.0-0.7) K/uL Baso # (Auto) 0.0 (0.0-0.1) K/uL Nucleated RBC % 0.0 /100WBC Nucleated RBCs # 0 K/uL Sodium 139 (136-146) mmol/L Potassium 4.1 (3.5-5.1) mmol/L Chloride 106 (98-110) mmol/L Carbon Dioxide 22 (21-31) mmol/L BUN 7 (6.0-23.0) mg/dL Creatinine 0.8 (0.6-1.5) mg/dL Est Cr Clr Drug Dosing 89.08 mL/min Estimated GFR (MDRD) > 60.0 ml/min Glucose 99 (60-110) mg/dL Calcium 8.2 L (8.8-10.8) mg/dL Med Orders - Current: Current Medications Fentanyl (Sublimaze) 50 mcg IVPUSH SEECOMMENT PRN PRN Reason: Pain (moderate 4-6) Lactated Ringer's (Ringers, Lactated) 1,000 mls @ 125 mls/hr IV ASDIRECTED [facility] Last Admin: 09/29/16 01:31 Dose: 125 mls/hr Ketorolac Tromethamine (Toradol) 30 mg IVPUSH Q6H PRN PRN Reason: Pain (severe 7-10) Stop: 10/03/16 10:56 Last Admin: 09/28/16 16:45 Dose: 30 mg Morphine Sulfate (Morphine) 2 mg IVPUSH Q2H PRN PRN Reason: Pain (severe 7-10) Last Admin: 09/28/16 20:24 Dose: 2 mg Morphine Sulfate (Morphine) 4 mg IVPUSH Q2H PRN PRN Reason: Pain (severe 7-10) Ondansetron HCl (Zofran) 4 mg IVPUSH Q6H PRN PRN Reason: Nausea/Vomiting Last Admin: 09/28/16 20:34 Dose: 4 mg Oxycodone/Acetaminophen (Percocet 325-5 Mg) 1 tab PO Q4H PRN PRN Reason: Pain (moderate 4-6) Oxycodone/Acetaminophen (Percocet 325-5 Mg) 2 tab PO Q4H PRN PRN Reason: Pain (moderate 4-6) Last Admin: 09/29/16 08:45 Dose: 2 tab Promethazine HCl (Phenadoz) 12.5 - 25 mg RECTAL ASDIRECTED PRN PRN Reason: Nausea/Vomiting Promethazine HCl (Phenergan) 25 mg IM Q6H PRN PRN Reason: Nausea/Vomiting Last Admin: 09/28/16 16:26 Dose: 25 mg Scopolamine (Transderm-Scop) 1.5 mg TRDERM Q72H PRN PRN Reason: Nausea Last Admin: 09/28/16 09:25 Dose: 1.5 mg Sodium Chloride (Saline Flush) 10 ml FLUSH ASDIRECTED PRN PRN Reason: Keep Vein Open Sodium Chloride (Saline Flush) 2.5 ml FLUSH ASDIRECTED PRN PRN Reason: Keep Vein Open Discontinued Medications Dexamethasone (Dexamethasone) Confirm Administered Dose 20 mg .ROUTE .STK-MED ONE Stop: 09/28/16 07:25 Fentanyl (Sublimaze) Confirm Administered Dose 250 mcg .ROUTE .STK-MED ONE Stop: 09/28/16 07:26 Fentanyl (Sublimaze) Confirm Administered Dose 100 mcg .ROUTE .STK-MED ONE Stop: 09/28/16 10:11 Fluorescein Sodium (Ak-Fluor) Confirm Administered Dose 5 ml .ROUTE .STK-MED ONE Stop: 09/28/16 07:16 Furosemide (Lasix) Confirm Administered Dose 40 mg .ROUTE .STK-MED ONE Stop: 09/28/16 10:04 Glycopyrrolate () Confirm Administered Dose 1 mg .ROUTE .STK-MED ONE Stop: 09/28/16 10:43 Hydromorphone HCl (Dilaudid) Confirm Administered Dose 2 mg .ROUTE .STK-MED ONE Stop: 09/28/16 07:26 Hydromorphone HCl (Dilaudid) Confirm Administered Dose 2 mg .ROUTE .STK-MED ONE Stop: 09/28/16 10:56 Cefazolin Sodium/Dextrose 2 gm (/ Premix) 50 mls @ 100 mls/hr IV ONETIME ONE Stop: 09/27/16 09:22 Last Admin: 09/28/16 15:57 Dose: Not Given Ketorolac Tromethamine (Toradol) 30 mg IVPUSH ONETIME ONE Stop: 09/28/16 10:57 Last Admin: 09/28/16 15:25 Dose: Not Given Lidocaine (Xylocaine-Mpf 2%) Confirm Administered Dose 5 ml .ROUTE .STK-MED ONE Stop: 09/28/16 07:26 Midazolam HCl (Versed 1 Mg/Ml) Confirm Administered Dose 2 mg .ROUTE .STK-MED ONE Stop: 09/28/16 07:25 Mineral Oil/White Petrolatum (Lacri-Lube S.O.P Oint) Confirm Administered Dose 3.5 gm .ROUTE .STK-MED ONE Stop: 09/28/16 10:04 Neostigmine Methylsulfate (Neostigmine) Confirm Administered Dose 5 mg .ROUTE .STK-MED ONE Stop: 09/28/16 10:43 Octyl Cyanoacrylate (Dermabond Advance) Confirm Administered Dose 1 applic .ROUTE .STK-MED ONE Stop: 09/28/16 07:16 Ondansetron HCl (Zofran) Confirm Administered Dose 4 mg .ROUTE .STK-MED ONE Stop: 09/28/16 07:25 Propofol (Diprivan 20 Ml) Confirm Administered Dose 200 mg .ROUTE .STK-MED ONE Stop: 09/28/16 07:25 Rocuronium [place] (Zemuron) Confirm Administered Dose 100 mg .ROUTE .STK-MED ONE Stop: 09/28/16 07:25 Scopolamine (Transderm-Scop) Confirm Administered Dose 1.5 mg .ROUTE .STK-MED ONE Stop: 09/28/16 09:25 Last Admin: 09/28/16 15:25 Dose: Not Given Succinylcholine Chloride (Succinylcholine In Ns Pf) Confirm Administered Dose 200 mg .ROUTE .STK-MED ONE Stop: 09/28/16 09:40 - Exam General: Reports: alert, oriented HEENT: Reports: Pupils equal, Pupils reactive, EOMI, Mucous membr. moist/pink Neck: Reports: supple Lungs: Reports: Clear to auscultation, Normal respiratory effort Cardiovascular: Reports: Regular Rate, Regular Rhythm Abdomen: Reports: bowel sounds present, soft, no tenderness, no distension (Female) Exam: Normal External Exam, Normal Speculum Exam, Normal Bimanual Exam Rectal (Female) Exam: Normal Exam, Normal Rectal Tone Back Exam: Reports: Normal Inspection, Full Range of Motion Extremities: Reports: no edema, normal pulses Skin: Reports: warm, dry, intact Wound/Incisions: Reports: healing well Neurological: Reports: no new focal deficit Psy/Mental Status: Reports: alert, normal affect, normal mood *Q Meaningful Use (DIS) - VTE *Q VTE Criteria *Q: - Stroke *Q Stroke Criteria *Q: - AMI *Q AMI Criteria *Q:
--- NOTE | 2016-09-29 13:40 | PCM48HPAN ---
Post Anesthesia Note - EVALUATION WITHIN 48HRS OF ANESTHETIC Vital Signs in Normal Range: Yes Patient Participated in Evaluation: Yes Respiratory Function Stable: Yes Airway Patent: Yes Cardiovascular Function Stable: Yes Hydration Status Stable: Yes Pain Control Satisfactory: Yes Nausea and Vomiting Control Satisfactory: Yes Mental Status Recovered: Yes
== END 2016-09-29 10:03 | disposition home or self-care (01) ==
LOC: MW.SDS 07:49 → MW.MS 12:10 → MW.SDS 09-29 10:03
PROVIDERS: ATTEND Obstetrics & Gynecology
PROC: 0UT94ZZ Resection of Uterus, Percutaneous Endoscopic Approach (ICD-10-PCS; principal; 2016-09-28)
PROC: 0UTC4ZZ Resection of Cervix, Percutaneous Endoscopic Approach (ICD-10-PCS; 2016-09-28)
PROC: 0UT74ZZ Resection of Bilateral Fallopian Tubes, Percutaneous Endoscopic Approach (ICD-10-PCS; 2016-09-28)
DX: N80.0 Endometriosis of uterus (principal); N83.8 Other noninflammatory disorders of ovary, fallopian tube and broad ligament; D64.9 Anemia, unspecified; G89.4 Chronic pain syndrome; M51.36 Other intervertebral disc degeneration, lumbar region; G60.9 Hereditary and idiopathic neuropathy, unspecified; E66.9 Obesity, unspecified; F32.9 Major depressive disorder, single episode, unspecified; Z79.899 Other long term (current) drug therapy; Z88.1 Allergy status to other antibiotic agents; Z88.8 Allergy status to other drugs, medicaments and biological substances; Z91.041 Radiographic dye allergy status; Z90.49 Acquired absence of other specified parts of digestive tract; Z98.890 Other specified postprocedural states; Z68.34 Body mass index [BMI] 34.0-34.9, adult; Z87.01 Personal history of pneumonia (recurrent); Z87.442 Personal history of urinary calculi; Z87.891 Personal history of nicotine dependence; Z91.040 Latex allergy status
CPT/HCPCS: 36415; 58571; 80048; 84703; 85025; 85027; 86850; 86900; 86901; A9270; J0690; J1100; J1170; J1885; J1940; J2250; J2270; J2405; J2550; J3010; J7120; 00944; 88307; J2704

== ENCOUNTER 2020-01-22 09:54 | Emergency (ER) | payer BC ==
[2020-01-22] MEDS ORDERED: Sodium Chloride 0.9% 2.5 ML Syringe FLUSH PRN (10:12)
[2020-01-22] MEDS ORDERED: Sodium Chloride 0.9% 1,000 ML IV ONE (10:12)
[2020-01-22] MEDS ORDERED: Sodium Chloride 0.9% 10 ML Syringe FLUSH PRN (10:12)
[2020-01-22] MEDS ORDERED: Prochlorperazine 10 MG in Sodium Chloride 0.9% 50 ML IV ONE (10:13)
--- NOTE | 2020-01-22 10:20 | EDM.PDOC ---
ED HPI GENERAL MEDICAL PROBLEM - General Chief Complaint: Neuro Symptoms/Deficits Stated Complaint: STROKE SYMPTOMS Time Seen by Provider: 01/22/20 10:04 - History of Present Illness INITIAL COMMENTS - FREE TEXT/NARRATIVE: History of present illness: Patient presents with a gradual onset of headache that is neither febrile nor traumatic. Headache is described as pressure and is associated with feelings of vertigo. She says her head feels full she has had some nasal congestion she denies any fever chills there is not been any vomiting but she has been nauseous. She does get headaches in the past this is not like her normal headache but it is of gradual onset she has not had any dysuria there is been no abdominal pain there is no focal weakness. Being still makes it better movement makes it worse Review of systems: As per history of present illness and below otherwise all systems reviewed and negative. Past medical history: As per history of present illness and as reviewed below otherwise noncontributory. Surgical history: As per history of present illness and as reviewed below otherwise noncontributory. Social history: No reported history of drug or alcohol abuse. Family history: As per history of present illness and as reviewed below otherwise noncontributory. Physical exam: HEENT: Atraumatic, normocephalic, pupils reactive, negative for conjunctival pallor or scleral icterus, mucous membranes moist, throat clear, neck supple, nontender, trachea midline. Lungs: Clear to auscultation, breath sounds equal bilaterally, chest nontender. Heart: S1S2, regular, negative for clicks, rubs, or JVD. Abdomen: Soft, nondistended, nontender. Negative for masses or hepatosplenomegaly. Negative for costovertebral tenderness. Pelvis: Stable nontender. Genitourinary: Deferred. Rectal: Deferred. Extremities: Atraumatic, negative for cords or calf pain. Neurovascular unremarkable. Neuro: Awake, alert, oriented. Cranial nerves II through XII unremarkable. Cerebellum unremarkable. Motor and sensory unremarkable throughout. Exam nonfocal. No pronator drift no ataxia Diagnostics: [] Therapeutics: [] Impression: Headache, vertigo [] Plan: Patient be given Compazine for her symptoms a liter saline some labs will be drawn. She has no neurological findings. We discussed doing a stroke work- up but at this point in time do not feel like she is having an acute vascular occlusion. [] Definitive disposition and diagnosis as appropriate pending reevaluation and review of above. low back, down left leg Pain Score (Numeric/FACES): 3 - Related Data Allergies Allergy/AdvReac Type Severity Reaction Status Date / Time clarithromycin Allergy Cannot Verified 01/22/20 10:01 Remember escitalopram oxalate Allergy Rash Verified 01/22/20 10:01 [From Lexapro] latex Allergy Itching Verified 01/22/20 10:01 sumatriptan Allergy Cannot Verified 01/22/20 10:01 Remember Thiazides Allergy Cannot Verified 01/22/20 10:01 Remember tiagabine HCl [From Gabitril] Allergy Delusions Verified 01/22/20 10:01 Home Meds: Home Meds Zolpidem [Ambien] 5 mg PO BEDTIME 08/25/16 [History] Baclofen 20 mg PO DAILY 01/22/20 [History] Meclizine [Antivert] 25 mg PO Q6H #20 tab 01/22/20 [Rx] Naproxen [Naprosyn] 500 mg PO Q12HR #20 tab 01/22/20 [Rx] Past Medical History HEENT History: Reports: Other (See Below) Other HEENT History: wears glasses Cardiovascular History: Reports: None Respiratory History: Reports: Other (See Below) Other Respiratory History: surgical pneumonia after her gallbladder surgery Gastrointestinal History: Reports: GERD, Other (See Below) Genitourinary History: Reports: Renal Calculus SHACTOR History: Reports: Endometriosis, , Other (See Below) Other SHACTOR History: cyst on the ovary and breast Musculoskeletal History: Reports: Back Pain, Chronic, Other (See Below) Neurological History: Reports: Migraines, Neuropathy, Peripheral Psychiatric History: Reports: Anxiety, Depression, PTSD Endocrine/Metabolic History: Reports: Obesity/BMI 30+ Hematologic History: Reports: Anemia Dermatologic History: Reports: None - Infectious Disease History Infectious Disease History: Reports: Chicken Pox - Past Surgical History Head Surgeries/Procedures: Reports: None HEENT Surgical History: Reports: None GI Surgical History: Reports: Cholecystectomy Female Surgical History: Reports: Breast Biopsy Other Female Surgeries/Procedures: breast bx, laparoscopy with cystectomy, ovarian cyst Social & Family History - Tobacco Use Smoking Status *Q: Never Smoker - Recreational Drug Use Recreational Drug Use: No ED ROS GENERAL - Review of Systems Review Of Systems: See Below ED EXAM, GENERAL - Physical Exam Exam: See Below EKG INTERPRETATION EKG Interpretation Comments: EKG is normal sinus rhythm rate 85 bpm normal axis no ischemia read and interpreted by me Course - Vital Signs Text/Narrative:: Patient states her head feels better and she has no vertiginous symptoms at this time she would like to go home but I discharged her with some naproxen for pain and some meclizine for the dizziness follow-up with primary care if she is worsening we need to recheck her in the emergency department. Last Recorded V/S: Last Vital Signs Temp 36.7 C 01/22/20 09:57 Pulse 102 H 01/22/20 09:57 Resp 16 01/22/20 09:57 BP 133/95 H 01/22/20 09:57 Pulse Ox 98 01/22/20 09:57 - Orders/Labs/Meds Orders: Active Orders 24 hr Category Date Time Status EKG Documentation Completion [RC] STAT Care 01/22/20 10:33 Active Sodium Chloride 0.9% [Saline Flush] Med 01/22/20 10:12 Active 10 ml FLUSH ASDIRECTED PRN Sodium Chloride 0.9% [Saline Flush] Med 01/22/20 10:12 Active 2.5 ml FLUSH ASDIRECTED PRN Saline Lock Insert [OM.PC] Stat Oth 01/22/20 10:12 Ordered Medication Orders Sodium Chloride (Saline Flush) 10 ml FLUSH ASDIRECTED PRN PRN Reason: Keep Vein Open Last Admin: 01/22/20 11:07 Dose: 10 ml Documented by: SUMANTH Sodium Chloride (Saline Flush) 2.5 ml FLUSH ASDIRECTED PRN PRN Reason: Keep Vein Open Last Admin: 01/22/20 11:08 Dose: 2.5 ml Documented by: SUMANTH Labs: Laboratory Tests 01/22/20 01/22/20 01/22/20 Range/Units 10:00 10:00 10:26 WBC 6.50 (4.0-11.0) K/uL RBC 5.33 (4.30-5.90) M/uL Hgb 15.6 (12.0-16.0) g/dL Hct 47.0 H (36.0-46.0) % MCV 88.2 (80.0-98.0) fL MCH 29.3 (27.0-32.0) pg MCHC 33.2 (31.0-37.0) g/dL RDW Std Deviation 41.9 (28.0-62.0) fl RDW Coeff of Nancy 13 (11.0-15.0) % Plt Count 320 (150-400) K/uL MPV 10.60 (7.40-12.00) fL Neut % (Auto) 56.8 (48.0-80.0) % Lymph % (Auto) 36.9 (16.0-40.0) % [place] % (Auto) 4.9 (0.0-15.0) % Eos % (Auto) 1.2 (0.0-7.0) % Baso % (Auto) 0.2 (0.0-1.5) % Neut # (Auto) 3.7 (1.4-5.7) K/uL Lymph # (Auto) 2.4 (0.6-2.4) K/uL [place] # (Auto) 0.3 (0.0-0.8) K/uL Eos # (Auto) 0.1 (0.0-0.7) K/uL Baso # (Auto) 0.0 (0.0-0.1) K/uL Nucleated RBC % 0.0 /100WBC Nucleated RBCs # 0 K/uL Sodium 140 (136-145) mmol/L Potassium 4.0 (3.5-5.1) mmol/L Chloride 105 (98-107) mmol/L Carbon Dioxide 26.8 (21.0-32.0) mmol/L BUN 11 (7.0-18.0) mg/dL Creatinine 1.0 (0.6-1.0) mg/dL Est Cr Clr Drug Dosing 68.36 mL/min Estimated GFR (MDRD) 59.7 ml/min Glucose 99 (74-106) mg/dL Calcium 8.6 (8.5-10.1) mg/dL Total Bilirubin 0.7 (0.2-1.0) mg/dL AST 14 L (15-37) IU/L ALT 23 (14-63) IU/L Alkaline Phosphatase 69 (46-116) U/L Total Protein 7.2 (6.4-8.2) g/dL Albumin 4.0 (3.4-5.0) g/dL Globulin 3.2 (2.6-4.0) g/dL Albumin/Globulin Ratio 1.3 (0.9-1.6) Urine Color YELLOW Urine Appearance CLEAR Urine pH 6.0 (5.0-8.0) Ur Specific [place] 1.020 (1.001-1.035) Urine Protein NEGATIVE (NEGATIVE) mg/dL Urine Glucose (UA) NEGATIVE (NEGATIVE) mg/dL Urine Ketones 15 H (NEGATIVE) mg/dL Urine Occult Blood NEGATIVE (NEGATIVE) Urine Nitrite NEGATIVE (NEGATIVE) Urine Bilirubin NEGATIVE (NEGATIVE) Urine Urobilinogen 0.2 (<2.0) EU/dL Ur Leukocyte Esterase NEGATIVE (NEGATIVE) Urine HCG, Qual (NEGATIVE) 01/22/20 Range/Units 10:26 WBC (4.0-11.0) K/uL RBC (4.30-5.90) M/uL Hgb (12.0-16.0) g/dL Hct (36.0-46.0) % MCV (80.0-98.0) fL MCH (27.0-32.0) pg MCHC (31.0-37.0) g/dL RDW Std Deviation (28.0-62.0) fl RDW Coeff of Nancy (11.0-15.0) % Plt Count (150-400) K/uL MPV (7.40-12.00) fL Neut % (Auto) (48.0-80.0) % Lymph % (Auto) (16.0-40.0) % [place] % (Auto) (0.0-15.0) % Eos % (Auto) (0.0-7.0) % Baso % (Auto) (0.0-1.5) % Neut # (Auto) (1.4-5.7) K/uL Lymph # (Auto) (0.6-2.4) K/uL [place] # (Auto) (0.0-0.8) K/uL Eos # (Auto) (0.0-0.7) K/uL Baso # (Auto) (0.0-0.1) K/uL Nucleated RBC % /100WBC Nucleated RBCs # K/uL Sodium (136-145) mmol/L Potassium (3.5-5.1) mmol/L Chloride (98-107) mmol/L Carbon Dioxide (21.0-32.0) mmol/L BUN (7.0-18.0) mg/dL Creatinine (0.6-1.0) mg/dL Est Cr Clr Drug Dosing mL/min Estimated GFR (MDRD) ml/min Glucose (74-106) mg/dL Calcium (8.5-10.1) mg/dL Total Bilirubin (0.2-1.0) mg/dL AST (15-37) IU/L ALT (14-63) IU/L Alkaline Phosphatase (46-116) U/L Total Protein (6.4-8.2) g/dL Albumin (3.4-5.0) g/dL Globulin (2.6-4.0) g/dL Albumin/Globulin Ratio (0.9-1.6) Urine Color Urine Appearance Urine pH (5.0-8.0) Ur Specific [place] (1.001-1.035) Urine Protein (NEGATIVE) mg/dL Urine Glucose (UA) (NEGATIVE) mg/dL Urine Ketones (NEGATIVE) mg/dL Urine Occult Blood (NEGATIVE) Urine Nitrite (NEGATIVE) Urine Bilirubin (NEGATIVE) Urine Urobilinogen (<2.0) EU/dL Ur Leukocyte Esterase (NEGATIVE) Urine HCG, Qual NEGATIVE (NEGATIVE) Meds: Medications Generic Name Dose Route Start Last Admin Trade Name Freq PRN Reason Stop Dose Admin Sodium Chloride 10 ml 01/22/20 10:12 01/22/20 11:07 Saline Flush FLUSH 10 ml ASDIRECTED PRN Administration Keep Vein Open Sodium Chloride 2.5 ml 01/22/20 10:12 01/22/20 11:08 Saline Flush FLUSH 2.5 ml ASDIRECTED PRN Administration Keep Vein Open Discontinued Medications Generic Name Dose Route Start Last Admin Trade Name Freq PRN Reason Stop Dose Admin Sodium Chloride 1,000 mls @ 999 mls/hr 01/22/20 10:12 01/22/20 11:07 Normal Saline IV 01/22/20 11:12 999 mls/hr .Bolus ONE Administration Prochlorperazine Edisylate 10 mg 01/22/20 10:30 01/22/20 11:07 Compazine IVPUSH 01/22/20 10:31 10 mg ONETIME ONE Administration Departure - Departure Time of Disposition: 11:46 Disposition: Home, Self-Care 01 Condition: Good Clinical Impression: Headache, Vertigo - Discharge Information *PRESCRIPTION DRUG MONITORING PROGRAM REVIEWED*: Not Applicable *COPY OF PRESCRIPTION DRUG MONITORING REPORT IN PATIENT MARKOS: Not Applicable Instructions: Vertigo, [id number] Forms: ED Department Discharge Additional Instructions: The following information is given to patients seen in the emergency department who are being discharged to home. This information is to outline your options for follow-up care. We provide all patients seen in our emergency department with a follow-up referral. The need for follow-up, as well as the timing and circumstances, are variable depending upon the specifics of your emergency department visit. If you don't have a primary care physician on staff, we will provide you with a referral. We always advise you to contact your personal physician following an emergency department visit to inform them of the circumstance of the visit and for follow-up with them and/or the need for any referrals to a consulting specialist. The emergency department will also refer you to a specialist when appropriate. This referral assures that you have the opportunity for follow-up care with a specialist. All of these measure are taken in an effort to provide you with optimal care, which includes your follow-up. Under all circumstances we always encourage you to contact your private physician who remains a resource for coordinating your care. When calling for follow-up care, please make the office aware that this follow-up is from your recent emergency room visit. If for any reason you are refused follow-up, please contact the [facility] Emergency Department at and asked to speak to the emergency department charge nurse. Sepsis Event Note (ED) - Evaluation Sepsis Screening Result: No Definite Risk - Focused Exam Vital Signs: Vital Signs Temp Pulse Resp BP Pulse Ox 01/22/20 09:57 36.7 C 102 H 16 133/95 H 98 - My Orders Last 24 Hours: My Active Orders 01/22/20 10:12 Sodium Chloride 0.9% [Saline Flush] 10 ml FLUSH ASDIRECTED PRN Sodium Chloride 0.9% [Saline Flush] 2.5 ml FLUSH ASDIRECTED PRN Saline Lock Insert [OM.PC] Stat 01/22/20 10:33 EKG Documentation Completion [RC] STAT - Assessment/Plan Last 24 Hours: My Active Orders 01/22/20 10:12 Sodium Chloride 0.9% [Saline Flush] 10 ml FLUSH ASDIRECTED PRN Sodium Chloride 0.9% [Saline Flush] 2.5 ml FLUSH ASDIRECTED PRN Saline Lock Insert [OM.PC] Stat 01/22/20 10:33 EKG Documentation Completion [RC] STAT
[2020-01-22] MEDS ORDERED: Prochlorperazine 10 MG/2 ML SDV IVPUSH ONE (10:30)
[2020-01-22 11:00] LABS: CARBON DIOXIDE,CO2 26.8 mmol/L (21.0-32.0)
[2020-01-22 14:36] VITALS: BP 110/63; PULSE 62
== END 2020-01-22 12:05 | disposition home or self-care (01) ==
LOC: MW.ED 09:54
DX: R51.9 Headache, unspecified (principal); R42 Dizziness and giddiness; R09.81 Nasal congestion; E66.9 Obesity, unspecified; Z88.1 Allergy status to other antibiotic agents; Z91.040 Latex allergy status; Z88.8 Allergy status to other drugs, medicaments and biological substances; Z68.31 Body mass index [BMI] 31.0-31.9, adult; Z90.49 Acquired absence of other specified parts of digestive tract; Z79.899 Other long term (current) drug therapy
CPT/HCPCS: 36415; 80053; 81003; 81025; 85025; 93005; 96361; 96374; 99284; J0780; J7030; 93010; 99283

== ENCOUNTER 2024-06-28 09:18 | Emergency (ER) | payer BC ==
[2024-06-28 09:32] VITALS: BP 155/85
[2024-06-28] MEDS: Ondansetron 4 MG/2 ML SDV IVPUSH ONE (09:36)
[2024-06-28] MEDS: Sodium Chloride 0.9% 1,000 ML IV ONE (09:36)
[2024-06-28] MEDS: Dexamethasone 4 MG Tab PO ONE (09:37)
[2024-06-28] MEDS: Meclizine 25 MG Tab PO ONE (09:37)
[2024-06-28] MEDS: Prochlorperazine 10 MG/2 ML SDV IVPUSH ONE (09:39)
[2024-06-28] MEDS: diphenhydrAMINE 50 MG/ML SDV IVPUSH ONE (09:39)
[2024-06-28 09:40] LABS: BASOPHILS ABSOLUTE AUTO 0.04 K/uL (0.00-0.20); BASOPHILS PERCENT AUTO 0.6 % (0.0-1.0); EOSINOPHILS ABSOLUTE AUTO 0.04 K/uL (0.00-0.45); EOSINOPHILS PERCENT AUTO 0.6 % (0.0-6.0); HEMATOCRIT 44.5 % (37.0-47.0); HEMOGLOBIN 15.4 g/dL (12.0-16.0); IMMATURE GRAN ABSOLUTE AUTO 0.01 K/uL (0.00-0.05); IMMATURE GRAN PERCENT AUTO 0.2 % (0.0-0.4); LYMPHOCYTES ABSOLUTE AUTO 2.19 K/uL (1.00-4.80); LYMPHOCYTES PERCENT AUTO 33.1 % (24.0-44.0); MEAN CORPUSCULAR HEMOGLOBIN 29.6 pg (28.0-32.0); MEAN CORPUSCULAR HGB CONC 34.6 g/dL (32.0-36.0); MEAN CORPUSCULAR VOLUME 85.4 fL (83.0-99.0); MEAN PLATELET VOLUME 9.3 fL (9.4-12.3); MONOCYTES ABSOLUTE AUTO 0.37 K/uL (0.00-0.80); MONOCYTES PERCENT AUTO 5.6 % (0.0-8.0); NEUTROPHILS ABSOLUTE AUTO 3.97 K/uL (1.80-7.70); NEUTROPHILS PERCENT AUTO 59.9 % (41.0-71.0); PLATELET COUNT,PLT 242 K/uL (150-400); RED BLOOD CELL COUNT 5.21 M/uL (4.10-5.30); WHITE BLOOD CELL COUNT,WBC 6.62 K/uL (3.9-11.3)
[2024-06-28 10:07] LABS: INR 1.03 (0.86-1.11)
[2024-06-28 10:18] LABS: A/G RATIO 1.3 (0.9-1.6); ALBUMIN 3.9 g/dL (3.4-5.0); BILIRUBIN TOTAL 0.7 mg/dL (0.2-1.0); CALCIUM 8.8 mg/dL (8.5-10.1); CARBON DIOXIDE,CO2 25.9 mmol/L (21.0-32.0); EST CRCL DRUG DOSING (CG) 65.45 mL/min; POTASSIUM,K 3.7 mmol/L (3.5-5.1)
[2024-06-28 11:48] VITALS: PULSE 76
== END 2024-06-28 11:48 | disposition home or self-care (01) ==
LOC: MW.ED 09:18
DX: R42 Dizziness and giddiness (principal); K21.9 Gastro-esophageal reflux disease without esophagitis; E66.9 Obesity, unspecified; R79.89 Other specified abnormal findings of blood chemistry; Z86.69 Personal history of other diseases of the nervous system and sense organs; Z91.041 Radiographic dye allergy status; Z88.1 Allergy status to other antibiotic agents; Z88.8 Allergy status to other drugs, medicaments and biological substances
CPT/HCPCS: 36415; 70551; 80053; 80061; 83690; 83735; 83880; 84484; 85025; 85610; 93005; 96361; 96374; 96375; 99284; A9270; J0780; J1200; J2405; J7030; J8540